=== PATIENT | male | born 1975 | race African-American/Black ===

== ENCOUNTER 2019-03-27 13:22 | Emergency (ER) | payer MEDICARE, OTHER ==
[~2019-03-27] VITALS: Ht 157.5 cm; Wt 47.7 kg
[2019-03-27] MEDS ORDERED: TETANUS/DIPHTHERIA TOX ADULT 0.5 ML SYR IM ONE (14:15)
[2019-03-27] MEDS ORDERED: LIDOCAINE VISC 2% SOLN 15 ML UDC ONE (14:20)
[2019-03-27] MEDS ORDERED: LIDOCAINE HCL 1% LOCAL INJ 20 ML VIAL ONE (14:23)
[2019-03-27] MEDS ORDERED: LIDOCAINE HCL 1% LOCAL INJ 20 ML VIAL INJ ONE (14:30)
[2019-03-27] MEDS ORDERED: MORPHINE SULFATE 2 MG/ML SYR 1ML IV STA (14:40)
[2019-03-27] MEDS ORDERED: ONDANSETRON HCL INJ 2MG/ML 2ML 2 MG/ML VIAL IV STA (14:40)
[2019-03-27] MEDS ORDERED: TETANUS/DIPHTHERIA TOX ADULT 0.5 ML SYR ONE (14:45)
--- NOTE | 2019-03-27 15:06 | Diagnostic Imaging Report ---
EXAMINATION: FINGER LT - HOPD INDICATION: Trauma COMPARISON: None FINDINGS: No acute fracture or dislocation. There is soft tissue defect at the distal tip of the left fifth digit consistent with laceration. Alignment is anatomic. IMPRESSION: Soft tissue laceration of the distal fifth digit without underlying acute osseous injury. Signed by: Luz Marina Marx MD on 03/27/2019 3:04 PM
[2019-03-27 18:17] VITALS: BP 142/103
[2019-03-27] MEDS ORDERED: PEPCID20 MG (19:39)
[2019-03-27] MEDS ORDERED: CETIRIZINE HCL10 MG (19:39)
[2019-03-27] MEDS ORDERED: LEVETIRACETAM500 MG (19:39)
[2019-03-27] MEDS ORDERED: BENICAR20 MG PO (19:39)
[2019-03-27] MEDS ORDERED: NIFEDIPINE10 MG PO (19:39)
[2019-03-27] MEDS ORDERED: OLANZAPINE5 MG PO (19:39)
[2019-03-27] MEDS ORDERED: POTASSIUM10 MEQ/100 IV (19:39)
[2019-03-27] MEDS ORDERED: VITAMIN D34000 UNIT (19:39)
== END 2019-03-27 15:10 | disposition home or self-care (01) ==
LOC: FSED 13:22
DX: S61.211A Laceration without foreign body of left index finger without damage to nail, initial encounter (principal); W23.1XXA Caught, crushed, jammed, or pinched between stationary objects, initial encounter; Y92.008 Other place in unspecified non-institutional (private) residence as the place of occurrence of the external cause
CPT/HCPCS: 12001; 73140; 90471; 90714; 99283; J2001; J2270; J2405

== ENCOUNTER 2021-05-15 13:27 | Emergency (ER) | payer MEDICARE ==
[~2021-05-15 13:27] MED LIST: BENICAR20 MG PO; CETIRIZINE HCL10 MG; LEVETIRACETAM500 MG; NIFEDIPINE10 MG PO; OLANZAPINE5 MG PO; PEPCID20 MG; POTASSIUM10 MEQ/100 IV; VITAMIN D34000 UNIT
[2021-05-15] MEDS ORDERED: FAMOTIDINE 20 MG/2 ML VIAL IV ONE (13:49)
[2021-05-15] MEDS ORDERED: EPINEPHRINE HCL 1:1000 1ML 1 MG/ML AMP ONE (13:49)
[2021-05-15] MEDS ORDERED: DIPHENHYDRAMINE HCL INJ 50 MG/ML VIAL ONE (13:49)
[2021-05-15] MEDS ORDERED: METHYLPREDNISOLONE SOD SUCC 125 MG/2ML VIAL ONE (13:49)
[2021-05-15] MEDS ORDERED: SODIUM CHLORIDE 0.9% 1000ML 1,000 ML ONE (13:50)
[2021-05-15] MEDS ORDERED: EPINEPHRINE HCL 1:1000 1ML 1 MG/ML AMP SC ONE (14:15)
[2021-05-15] MEDS ORDERED: FAMOTIDINE 20 MG/2 ML VIAL IV STA (14:24)
[2021-05-15] MEDS ORDERED: SODIUM CHLORIDE 0.9% 1000ML 1,000 ML IV ONE (14:30)
[2021-05-15] MEDS ORDERED: DIPHENHYDRAMINE HCL INJ 50 MG/ML VIAL IV ONE (14:30)
[2021-05-15] MEDS ORDERED: METHYLPREDNISOLONE SOD SUCC 125 MG/2ML VIAL IV ONE (14:45)
[2021-05-15] MEDS ORDERED: DIPHENHYDRAMINE25 M1 PO (15:32)
[2021-05-15] MEDS ORDERED: EPINEPHRIN0.3 MG/0.3 SQ (15:35)
[2021-05-15] MEDS ORDERED: PREDNISONE20 MG PO (15:36)
[2021-05-15 15:57] VITALS: BP 142/97
== END 2021-05-15 15:57 | disposition home or self-care (01) ==
LOC: FSED 14:05
DX: T78.3XXA Angioneurotic edema, initial encounter (principal); G40.909 Epilepsy, unspecified, not intractable, without status epilepticus; I10 Essential (primary) hypertension; H91.3 Deaf nonspeaking, not elsewhere classified; F73 Profound intellectual disabilities; I25.10 Atherosclerotic heart disease of native coronary artery without angina pectoris; K21.9 Gastro-esophageal reflux disease without esophagitis
CPT/HCPCS: 80053; 85025; 99283; J0171; J1200; J2930; J7030